=== PATIENT | male | born 1965 | race Caucasian/White ===

== ENCOUNTER 2020-08-01 17:34 | Inpatient (IN) | payer SELFPAY ==
[~2020-08-01] VITALS: Ht 167.6 cm; Wt 86.4 kg
--- NOTE | 2020-08-01 17:47 | RAD ---
EXAM: CT Head without IV contrast INDICATION: Reason: RIGHT SIDED WEAKNESS / Spl. Instructions: / History: TECHNIQUE: Multi-detector row CT images were obtained of the head without the use of IV contrast. All CT scans performed at this facility utilize dose optimization techniques as appropriate to the exam, including the following: Automated exposure control and adjustment of the mA and/or KV according to patient size (this includes techniques or standardized protocols for targeted exams where dose is ind ication/reason for exam). COMPARISON: None FINDINGS: BRAIN PARENCHYMA: No evidence of acute intraparenchymal hemorrhage or infarct. No abnormal parenchyma l density or mass. VENTRICLES & EXTRA-AXIAL SPACES: Ventricles are within normal limits. Basilar cisterns are patent. N o pathologic extra-axial fluid collection or mass. ORBITS: Orbital contents are unremarkable. SINUSES: Visualized paranasal sinuses and mastoid air cells are clear. OSSEOUS & SOFT TISSUES: Calvarium and skull base are intact. IMPRESSION: No acute intracranial pathology. FOR INTERNAL CODING PURPOSES Critical result: Findings discussed with Dr. Marino Blackwood at 08/01/2020 5:43 PM. RESULT CODE: (C) Electronically signed by: Princess Cason MD (08/01/2020 5:45 PM) [id number]
--- NOTE | 2020-08-01 18:15 | EKG ---
[address] [address] Test Date: 2020-08-01 Test Time: 18:07:13 Pat Name: CORINA CASTILLO Department: Room: Gender: M [employer]: [employer] : 1965 Requested By: ROLA YANES Order Number: [id number] Reading MD: Measurements Intervals [place] Rate: 74 P: 0 OH: 150 QRS: 30 QRSD: 86 T: 29 QT: 340 QTc: 382 Interpretive Statements SINUS RHYTHM NORMAL ECG RI6.02 No previous ECG available for comparison
--- NOTE | 2020-08-01 18:23 | RAD ---
INDICATION: Reason: weakness / Spl. Instructions: / History: COMPARISON: None. FINDINGS: Single view of chest obtained. No focal airspace consolidation. Cardiomediastinal contour unremarkable. No acute osseous abnormality. IMPRESSION: * No focal airspace consolidation or edema. Electronically signed by: Yoni Purcell MD (08/01/2020 6:21 PM) [id number]
--- NOTE | 2020-08-01 18:26 | PHYS DOC ---
Past History Past Medical History "Prediabetes" Past Surgical History: No Surgical History Smoking: Non-smoker Alcohol Use: None Drug Use: None General Adult EDM: Chief Complaint: NEURO SYMPTOMS/DEFICITS HPI: HPI: Patient is a 55 year old male who presents via with TIA symptoms. 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 He thought maybe it was his blood sugar because he was told three yrs ago he had "prediabetes, so he ate a candy bar and continued to ref the game. During the second half his symptoms became worse and he felt more dizziness and sensation changes on his right side. EMS was called and on arrival he had right sided facial droop and right sided weakness and numbness. His BG was 302 and he was transported here via EMS. On arrival his symptoms had fully resolved. He currently complains of a slight headache that he states is fairly normal for him. It is not the worst headache of his life, denies any n/v. He does not have a PCP and does not have good continuity of care due to lack of insurance after losing his job a few years ago. He currently has no other current complaints. Review of Systems: Review of Systems: Constitutional: Denies fever or chills Eyes: Denies redness or eye pain HENT: Denies nasal congestion or sore throat Respiratory: Denies cough or shortness of breath Cardiovascular: Denies chest pain or palpitations GI: Denies abdominal pain, nausea, or vomiting : Denies dysuria or hematuria Musculoskeletal: Denies back pain or joint pain Integument: Denies rash or skin lesions Neurologic: Reports current headache and recent right leg weakness, numbness, an d facial droop which are now resolved. Complete systems were reviewed and found to be within normal limits, except as documented in this note. Physical Exam: PE: Constitutional: Well developed, well nourished, no acute distress, non-toxic appearance HENT: Normocephalic, atraumatic Eyes: PERRL, EOMI, conjunctiva normal, no discharge Neck: Normal range of motion, no tenderness, supple Lungs & Thorax: No respiratory distress, equal chest rise and fall Heart: RRR no m/r/g Abdomen: Soft, no tenderness Skin: Warm, dry, no erythema, no rash Back: No tenderness, no CVA tenderness Extremities: No tenderness, ROM intact, no edema Neurologic: Alert and oriented X 3, normal motor function, normal sensory function, no focal deficits noted, CN 2-12 grossly intact bilaterally Psychologic: Affect normal, judgment normal Current Patient Data: Labs: Laboratory Tests Test 08/01/20 17:59 Glucose (Fingerstick) 363 mg/dL (70-99) H EKG: EKG: @ 18:07 Normal Sinus Rhythm at 74 bpm, no acute ST elevation, QRS 86, QT/QTc 340/382 Radiology/Procedures: Radiology/Procedures: PROCEDURE: CT CODE STROKE HEAD WO EXAM: CT Head without IV contrast INDICATION: Reason: RIGHT SIDED WEAKNESS / Spl. Instructions: / History: TECHNIQUE: Multi-detector row CT images were obtained of the head without the use of IV contrast. All CT scans performed at this facility utilize dose optimization techniques as appropriate to the exam, including the following: Automated exposure control and adjustment of the mA and/or KV according to patient size (this includes techniques or standardized protocols for targeted exams where dose is indication/reason for exam). COMPARISON: None FINDINGS: BRAIN PARENCHYMA: No evidence of acute intraparenchymal hemorrhage or infarct. No abnormal parenchymal density or mass. VENTRICLES & EXTRA-AXIAL SPACES: Ventricles are within normal limits. Basilar cisterns are patent. No pathologic extra-axial fluid collection or mass. ORBITS: Orbital contents are unremarkable. SINUSES: Visualized paranasal sinuses and mastoid air cells are clear. OSSEOUS & SOFT TISSUES: Calvarium and skull base are intact. IMPRESSION: No acute intracranial pathology. FOR INTERNAL CODING PURPOSES Critical result: Findings discussed with Dr. Marino Yanes at 08/01/2020 5:43 PM. RESULT CODE: (C) PROCEDURE: PORTABLE CHEST 1V INDICATION: Reason: weakness / Spl. Instructions: / History: COMPARISON: None. FINDINGS: Single view of chest obtained. No focal airspace consolidation. Cardiomediastinal contour unremarkable. No acute osseous abnormality. IMPRESSION: * No focal airspace consolidation or edema. Electronically signed by: Yoni Purcell MD (08/01/2020 6:21 PM) [id number] Electronically signed by: Princess Cason MD (08/01/2020 5:45 PM) [id number] Course & Med Decision Making: Course & Med Decision Making Pertinent Labs and Imaging studies reviewed. (See chart for details) Patient presents with HPI and physical exam consistent for TIA. No neuro deficit appreciated upon arrival. NIHSS 0. CT head without acute process. EKG stable. Labs obtained and posted to chart. Hyperglycemia noted and addressed. Patient without ability to follow-up due to lack of insurance and PCP. Patient therefore requiring admission for further evaluation and treatment. Discussed with Dr. Bauer (hospitalist) who is in agreement with admission. Discussed case with Dr. Goff (neurology) who is in agreement with consultation. Discussed findings and plan with patient, who acknowledges understanding and agreement. Dragon Disclaimer: Dragon Disclaimer: This electronic medical record was generated, in whole or in part, using a voice recognition dictation system. Departure Departure: Impression: Primary Impression: TIA (transient ischemic attack) Additional Impression: Hyperglycemia Disposition: ADMITTED INPT THIS HOSP Admitting Physician: Redd Bauer Condition: STABLE Scripts Glimepiride (AMARYL) 2 Mg Tablet 2 MG PO DAILY for dm for 30 Days, #30 TAB Prov: REDD BAUER MD 08/02/20 Metformin HCl (Metformin HCl ER) 500 Mg [id number] 500 MG PO BID for dm for 30 Days, #60 TAB.SR Prov: REDD BAUER MD 08/02/20 NIHSS - ED NIH Stroke Scale: NIH Stroke Scale Response (Comments) Value Level of Consciousness: 0 Alert/Responsive 0 LOC Questions: 0 Answers both correctly 0 LOC Commands: 0 Performs both tasks 0 Best Gaze: 0 Normal 0 Visual: 0 No visual loss 0 Facial Palsy: 0 Normal, symmetrical 0 Motor - Left Arm 0 No drift 0 Motor - Right Arm 0 No drift 0 Motor - Left Leg 0 No drift 0 Motor: Right Leg 0 No drift 0 Limb Ataxia: 0 Absent 0 Sensory: 0 No loss 0 Best Language: 0 Normal 0 Dysathria: 0 Normal 0 Extinction and Inattention: 0 Normal 0 Total 0 YANESMARINO DO Aug 01, 2020 18:26
[2020-08-01] MEDS ORDERED: ASPIRIN ENTERIC COATED 325 MG TABLET.DR. PO ONE (18:30)
[2020-08-01 18:33] LABS: BASO % 0 % (0-3); EOS % 1 % (0-3); HEMATOCRIT 46.6 % (39.0-53.0); HEMOGLOBIN 15.5 g/dL (13.0-17.5); LYMPH # 1.7 x10^3/uL (1.0-4.8); LYMPH % 29 % (24-48); MEAN CORPUSCULAR HEMOGLOBIN 27 pg (25-35); MEAN CORPUSCULAR HGB CONC 33 g/dL (31-37); MEAN CORPUSCULAR VOLUME 82 fL (79-100); MONO # 0.4 x10^3/uL (0.0-1.1); MONO % 6 % (0-9); NEUT # 3.8 x10^3uL (1.8-7.7); NEUT % 64 % (31-73); PLATELET COUNT 195 x10^3/uL (140-400); RED BLOOD COUNT 5.69 x10^6/uL (4.30-5.70); RED CELL DISTRIBUTION WIDTH 13.1 % (11.5-14.5); WHITE BLOOD COUNT 5.9 x10^3/uL (4.0-11.0)
[2020-08-01 18:46] LABS: CALCIUM 8.8 mg/dL (8.5-10.1); CREATININE 0.9 mg/dL (0.7-1.3); GFR 87.3; POTASSIUM 4.2 mmol/L (3.5-5.1)
[2020-08-01] MEDS ORDERED: INSULIN REGULAR 100 UNIT/ML 3ML VIAL. SQ ONE (19:00)
[2020-08-01 19:03] LABS: ALBUMIN 3.5 g/dL (3.4-5.0); MAGNESIUM 1.6 mg/dL (1.8-2.4); TOTAL BILIRUBIN 0.5 mg/dL (0.2-1.0); TOTAL PROTEIN 6.9 g/dL (6.4-8.2)
[2020-08-01] MEDS ORDERED: DEXTROSE 50% 25 GM / 50ML DISP.SYRIN. IV PRN (20:00)
[2020-08-01] MEDS ORDERED: ACETAMINOPHEN 500 MG TABLET PO ONE (21:00)
--- NOTE | 2020-08-01 21:00 | NUR ---
Admit Note: Pt transported from ED room 119 via EMS. Pt ambulated from cart to bed independently (steady gait observed), VS show elevated BP (168/85, called Dr. Bauer, orders received), telemetry applied (pt in NSR at this time), admission documentation completed, pt oriented to room, call light, safety measures, and unit routines. Plan of care discussed with patient. Pt states he is very concerned about financial situation since he does not have insurance and cannot afford a large medical bill. Advised pt I would consult CM to have discussion. Pt agrees with plan.
[2020-08-01] MEDS: LISINOPRIL 10 MG TABLET PO SCH (21:52)
[2020-08-01 22:26] VITALS: BP 168/85
--- NOTE | 2020-08-01 23:41 | NUR ---
Dr. Goff called to advise of consult.
[2020-08-02] VITALS: BP 130/70
--- NOTE | 2020-08-02 00:15 | NUR ---
Called Dr. Goff to advise that pt has had a change in condition. Pt states he is feeling the numbness in his right cheek/hand/leg/foot but it is resolving fairly quickly but thought he should let us know that the same thing is happening again that happened prior to his arrival in the ED. Called Dr. Goff, orders received.
[2020-08-02 05:51] VITALS: BP 135/81
[2020-08-02 06:35] LABS: BASO % 1 % (0-3); EOS # 0.1 x10^3/uL (0.0-0.7); EOS % 1 % (0-3); HEMATOCRIT 48.2 % (39.0-53.0); HEMOGLOBIN 15.9 g/dL (13.0-17.5); LYMPH # 2.6 x10^3/uL (1.0-4.8); LYMPH % 28 % (24-48); MEAN CORPUSCULAR HEMOGLOBIN 27 pg (25-35); MEAN CORPUSCULAR HGB CONC 33 g/dL (31-37); MEAN CORPUSCULAR VOLUME 83 fL (79-100); MONO # 0.6 x10^3/uL (0.0-1.1); MONO % 7 % (0-9); NEUT # 5.9 x10^3uL (1.8-7.7); NEUT % 63 % (31-73); PLATELET COUNT 210 x10^3/uL (140-400); RED BLOOD COUNT 5.82 x10^6/uL (4.30-5.70); RED CELL DISTRIBUTION WIDTH 13.3 % (11.5-14.5); WHITE BLOOD COUNT 9.3 x10^3/uL (4.0-11.0)
[2020-08-02 06:38] LABS: CREATININE 0.9 mg/dL (0.7-1.3); GFR 87.3; POTASSIUM 3.6 mmol/L (3.5-5.1)
[2020-08-02] MEDS ORDERED: IOHEXOL 350 MG/ML 100 ML VIAL. IV ONE (08:00)
[2020-08-02] MEDS ORDERED: ASPIRIN 325 MG TABLET PO SCH (08:00)
[2020-08-02] MEDS ORDERED: metFORMIN 500 MG TABLET PO SCH (08:00)
[2020-08-02] MEDS: LISINOPRIL 10 MG TABLET PO SCH (08:19)
[2020-08-02] MEDS: INSULIN LISPRO 300 UNITS/3 ML VIAL. SQ SCH ×2 (08:24→12:17)
--- NOTE | 2020-08-02 10:32 | CONS ---
DATE OF CONSULTATION: 08/01/2020 NEUROLOGY CONSULTATION REFERRING PHYSICIAN: Dr. Bauer REASON FOR CONSULTATION: To rule out TIA. HISTORY OF PRESENT ILLNESS: This is a 55-year-old right-handed male who was admitted through Emergency Room after he presented with right-sided weakness and paresthesia. 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 He felt weakness in the right leg in the first and second ____. He thought he had lower sugar, then he picked up a candy bar and continued to referee the game. During the second half, his weakness became worse, associated with dizziness. So, EMS was activated and transferred the patient to [facility] Emergency Room for further evaluation. He also complains of slight headaches. He denies nausea, vomiting, photophobia, phonophobia, chest pain, shortness of breath or palpitation, dysarthria or dysphagia. Initial nonenhanced head CT scan revealed no acute intracranial process. The patient was told he had prediabetes several years ago, but he has not seen any physicians for further evaluation. PAST MEDICAL HISTORY: Significant for hypertension, asthma, gastroesophageal reflux, fracture of left elbow, history of pre-diabetic. Initial nonenhanced head CT scan revealed no evidence of acute intracranial process. FAMILY HISTORY: Father had diabetes and hypertension. SOCIAL HISTORY: The patient is single. He denies smoking, alcohol drinking, or illicit drug use. He is ____. CURRENT HOME MEDICATIONS: None. ALLERGIES: No known drug allergies. REVIEW OF SYSTEMS: A 10-point review of system was performed as mentioned above in the history of present illness, otherwise unremarkable. PHYSICAL EXAMINATION: GENERAL: Well-developed, well-nourished male, not in acute distress. He weighs 86.4 kg. VITAL SIGNS: Blood pressure 135/81, respiratory rate 18, pulse is 70, oxygen saturation is 97%, temperature 98.1. HEENT: Normocephalic and atraumatic, otherwise unremarkable. NECK: Supple. Negative for carotid bruit, lymphadenopathy or thyromegaly. LUNGS: Clear to A and P. CARDIOVASCULAR: Regular rate and rhythm, normal S1 and S2. There is no S3, S4 or murmur. ABDOMEN: Soft. Bowel sounds positive. EXTREMITIES: Negative for cyanosis, clubbing or edema. NEUROLOGICAL: The patient is alert and oriented x 3. Speech is fluent. There is no language dysfunction. Memory, judgment, and abstracting thinking are normal. The patient denies hallucination or delusion. CRANIAL NERVES: Visual bustos are full. The pupils are reactive to light and accommodation. Extraocular movements are intact. There is no nystagmus. There are no facial motor or sensory deficits. Hearing is intact bilaterally. The palate is elevated symmetrically. Sternocleidomastoid muscles are powerful bilaterally. The patient shrugs his shoulders symmetrically, protrudes his tongue in the midline without fasciculation or atrophy. MOTOR EXAMINATION: No focal muscle bulk was seen. The tone is normal. The strength is 5/5 throughout. SENSORY EXAMINATION: Revealed normal pinprick, light touch, vibratory and position senses. Deep tendon reflexes were symmetric and active without pathology responses. Gait and coordination are normal. DIAGNOSTIC DATA: Nonenhanced head CT scan revealed no evidence of acute intracranial process, otherwise unremarkable. Chest x-ray revealed normal study. LABORATORY DATA: CBC revealed white blood cells of 9.3 thousand, hemoglobin 15.9, hematocrit of 48.2, platelet count 210,000. Chemistry revealed sodium of 138, potassium 3.6, chloride 98, CO2 of 29, BUN 13, creatinine 0.9, and glucose 184, but in the Emergency Room it was 365. Troponin level is normal at 0.017. Coagulation is normal. IMPRESSION: 1. Possible transient ischemic attack. The patient has multiple risk factors including hypertension and diabetes mellitus. 2. Normal current neurological examination. RECOMMENDATIONS: 1. The patient started on aspirin 325 mg p.o. daily last night. 2. Treat the underlying hypertension and diabetes mellitus. 3. For further evaluation for TIA, the patient may need a carotid Doppler study or CT angiogram of the neck and head. The patient is neurologically stable. M Robson CALDERON MD DR: TONY/catalina JOB#: [id number] / [id number]
[2020-08-02 10:46] VITALS: BP 119/69
[2020-08-02] MEDS ORDERED: GLIM2TAB PO (14:55)
[2020-08-02] MEDS ORDERED: METF-638 PO (14:55)
[2020-08-02 15:16] VITALS: BP 129/61
--- NOTE | 2020-08-02 15:18 | SSS ---
ADMIT DATE: 08/01/2020 HISTORY OF PRESENT ILLNESS: The patient is a 55-year-old male patient who presented to the Emergency Room with right-sided weakness and paraesthesia. 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 During the second half, his weakness became worse, associated with dizziness, so the EMS was activated and transferred the patient to [facility] for further evaluation. He also complained of slight headache, but denied any nausea, vomiting, photophobia, chest pain, shortness of breath, palpitation, dysarthria, or dysphagia. His CT scan of the head was unremarkable. He apparently was seen at [facility] [place] about 4 years ago and was told that his blood sugar was high, but has never really followed that. He also had high blood pressure, but has not received any treatment for that. He was extensively evaluated in the Emergency Room and has had lab work done, which basically showed that he has hyperglycemia and has hypomagnesemia, however, and therefore, the patient was admitted for observation overnight. The patient has had no further episode of tingling, numbness, or weakness and his blood sugar continues to be slightly elevated; however, he has been up and about and back to his baseline and, therefore, a decision was made to discharge him home. PAST MEDICAL HISTORY: Significant for probably type 2 diabetes mellitus and hypertension and also gastroesophageal reflux disease, bronchial asthma. PAST SURGICAL HISTORY: Significant for fracture of his left elbow. FAMILY HISTORY: He has one brother younger and probably diabetic. His father is alive at the age of 79, has diabetes and diabetic neuropathy. His mother is alive at the age of 79, has hypertension. SOCIAL HISTORY: Single, never , has no children. He does not smoke, drink alcohol, or use any recreational drugs. He basically works as a promotions assistant; however, does not have any insurance. REVIEW OF SYSTEMS: As per history of present illness. PHYSICAL EXAMINATION: GENERAL: On arrival to the Emergency Room, he looked well and was clearly in no apparent respiratory distress. No pallor, jaundice, cyanosis, or thyromegaly. No jugular venous distention, no limb edema. VITAL SIGNS: His heart rate was 79, blood pressure was 175/99, temperature was 98.2, respiratory rate was 16, and oxygen saturation was 95%. HEAD, EYES, EARS, NOSE AND THROAT: Showed normocephalic, atraumatic. NECK: Supple. HEART: Showed normal first and second heart sounds. No gallop or murmur. CHEST: Clear to auscultation. No crepitation or rhonchi. ABDOMEN: Distended, soft, nontender. NEUROLOGIC: He was grossly intact. LABORATORY DATA: His lab work on arrival showed a serum sodium 134, potassium 4.2, chloride 99, bicarbonate 27, anion gap of 8, BUN 16, creatinine 0.9, estimated GFR was 87 mL per minute. His glucose was 365, calcium was 8.8, magnesium was 1.6. Total bilirubin, AST, ALT, and alkaline phosphatase were normal. His total protein was 6.9, albumin was 3.5. His white cell count was 5900, hemoglobin 15.5, hematocrit 47, MCV 82, and platelet count of 195,000. His prothrombin time, INR and aPTT were normal. He apparently had had a CT scan of the head, which basically showed no evidence of acute intraparenchymal hemorrhage or infarct. No abnormal parenchymal density or mass. The ventricles are within normal limits. Basilar cisterns are patent. No pathological extraaxial fluid collection or mass effect. The orbital contents are unremarkable. Visualized paranasal sinuses and mastoid air cells are clear. Calvarium and skull base are intact. DIAGNOSTIC DATA: His chest x-ray showed no focal airspace consolidation or edema. ASSESSMENT AND PLAN: The patient was admitted with new onset diabetes mellitus that is poorly controlled and questionable TIA. The patient was seen by the neurologist who basically evaluated him and his impression is that the patient has possible transient ischemic attack and he recommended that he should start aspirin 325 mg once a day. I had a lengthy discussion with him and the plan is for him to be started on metformin extended release 500 mg twice a day and Amaryl 2 mg once a day as well as aspirin. He should arrange to have a primary care physician to follow him closely. DAE TORREZ MD DR: LA/catalina JOB#: [id number] / [id number]
--- NOTE | 2020-08-02 15:18 | NUR ---
PIV DISCONTINUED, TELE DISCONTINUED, PT SHOWERED ET DRESSED FOR DISCHARGE. DC PAPERWORK, PRESCRIPTIONS, ET DIABETIC EDUCATION MATERIALS COVERED WITH PATIENT, APPROPRIATE SIGNATURES OBTAINED. ALL POSSESSIONS GATHERED FOR PT FOR DISCHARGE. PT IS AMBULATORY TO FRONT DOOR FOR DC.
[2020-08-03 01:07] LABS: HEMOGLOBIN A1C 11.4 % (4.8-5.6)
[2020-08-04] MEDS ORDERED: metFORMIN 500 MG TABLET PO SCH (08:00)
== END 2020-08-02 16:20 | disposition home or self-care (01) | DRG 638 ==
LOC: ER 17:34 → 1 SOUTH 20:57
PROVIDERS: ADMIT Internal Medicine; ATTEND Internal Medicine
DX: E11.65 Type 2 diabetes mellitus with hyperglycemia (principal); G45.9 Transient cerebral ischemic attack, unspecified; E83.42 Hypomagnesemia; I10 Essential (primary) hypertension; K21.9 Gastro-esophageal reflux disease without esophagitis; J45.909 Unspecified asthma, uncomplicated; Z82.49 Family history of ischemic heart disease and other diseases of the circulatory system; Z83.3 Family history of diabetes mellitus
CPT/HCPCS: 36415; 70450; 71045; 80048; 80053; 82553; 82947; 83036; 83735; 84484; 85025; 85610; 85730; 93005; 96372; 99285; J1815